=== PATIENT | female | born 1995 | race Caucasian/White ===

== ENCOUNTER 2017-03-30 09:15 | Emergency (ER) | payer OTHER ==
[~2017-03-30] VITALS: Ht 167.6 cm; Wt 83.8 kg
[~2017-03-30 09:15] MED LIST: CLARITIN10 M3 PO; FLEXERIL5 MG PO; NEURONTIN300 MG PO; PROAIR HFA8.5 GM IH; PROZAC10 MG PO; TYLENOL EXTRA500 MG PO; ZOFRAN4 MG PO
[2017-03-30 11:20] VITALS: BP 124/90
== END 2017-03-30 11:21 | disposition home or self-care (01) ==
LOC: EME 09:15
DX: M54.41 Lumbago with sciatica, right side (principal); Z88.6 Allergy status to analgesic agent
CPT/HCPCS: 99281; 99285; J2270

== ENCOUNTER 2017-04-18 00:07 | Emergency (ER) | payer OTHER ==
[~2017-04-18] VITALS: Ht 167.6 cm; Wt 82.1 kg
[2017-04-18 01:19] LABS: HEMATOCRIT 39.3 % (36.0-46.0); MCH 28.9 PG (29.0-34.0); MCHC 32.8 G/DL (30.0-36.0); MCV 88.1 FL (83-99); MEAN PLAT.VOLUME 10.4 uM^3 (9.5-12.4); PLATELET COUNT 293 K/uL (156-360); RBC DIS.WIDTH-CV 13.5 % (11.8-14.6); RBC DIS.WIDTH-SD 43.6 % (39-53); RED BLOOD COUNT 4.46 M/uL (3.80-5.20); WHITE BLOOD COUNT 8.4 K/uL (4.1-10.2)
[2017-04-18] MEDS ORDERED: PERCOCET 5/31 TABLET PO (04:34)
[2017-04-18 04:50] VITALS: BP 122/92
== END 2017-04-18 04:51 | disposition home or self-care (01) ==
LOC: EME 00:07
DX: O03.9 Complete or unspecified spontaneous abortion without complication (principal); G89.29 Other chronic pain; J45.909 Unspecified asthma, uncomplicated
CPT/HCPCS: 81003; 84702; 85027; 86900; 86901; 99281; 99284

== ENCOUNTER 2018-03-30 19:13 | Outpatient (CLI) | payer OTHER ==
[~2018-03-30] VITALS: Ht 167.6 cm; Wt 84.1 kg
[~2018-03-30 19:13] MED LIST changes: +PERCOCET 5/31 TABLET PO
[2018-03-30 19:21] VITALS: BP 118/78
[2018-03-30] MEDS ORDERED: ZYRTEC10 M3 PO (19:40)
[2018-03-30] MEDS ORDERED: PRENATAL GUMMI1 EACH PO (19:41)
[2018-03-30] MEDS ORDERED: IRON325 M1 PO (19:41)
[2018-03-30 20:16] LABS: BASOPHIL (%) 0.2 % (0-1); EOSINOPHIL (%) 1.2 % (0-5); EOSINOPHIL COUNT 0.1 K/uL (0-0.3); HEMATOCRIT 28.5 % (36.0-46.0); HEMOGLOBIN 9.6 G/DL (11.9-15.5); IMMATURE GRANULOCYTE (%) 1.1 % (0.0-0.7); LYMPHOCYTE (%) 20.3 % (15-42); LYMPHOCYTE COUNT 2.2 K/uL (1.0-2.8); MCH 28.4 PG (29.0-34.0); MCHC 33.7 G/DL (30.0-36.0); MCV 84.3 FL (83-99); MONOCYTE (%) 5.1 % (3-12); MONOCYTE COUNT 0.6 K/uL (0-0.8); NEUTROPHIL (%) 72.1 % (45-76); NEUTROPHIL COUNT 7.9 K/uL (1.8-6.4); PLATELET COUNT 195 K/uL (156-360); RBC DIS.WIDTH-CV 14.7 % (11.8-14.6); RBC DIS.WIDTH-SD 45.3 % (39-53); RED BLOOD COUNT 3.38 M/uL (3.80-5.20)
[2018-03-30 20:17] LABS: APPEARANCE CLOUDY ((CLEAR)); BILIRUBIN NEGATIVE; BLOOD NEGATIVE; COLOR YELLOW ((YELLOW)); GLUCOSE (STRIP) NEGATIVE; KETONES 20; LEUKOCYTES MODERATE; NITRITE NEGATIVE; PROTEIN (STRIP) 30; SPECIFIC GRAVITY 1.015 (1.000-1.030); UROBILINOGEN 0.2 MG/DL (0.2-1.0)
[2018-03-30 21:19] LABS: BACTERIA 1+ /HPF; EPITHELIAL CELLS 2+ /HPF; MUCUS NONE SEEN /LPF; RED BLOOD CELLS 0-5 /HPF (0-5); UCUL ADDED? YES
[2018-03-31 00:25] VITALS: BP 137/70
[2018-03-31 03:12] VITALS: BP 118/75
== END 2018-03-31 06:22 | disposition home or self-care (01) ==
LOC: LDRP-OP 19:13 → 2WEST 19:14 → LDRP-OP 06-25 10:46
PROVIDERS: Nurse Practitioner
DX: O26.893 Other specified pregnancy related conditions, third trimester (principal); R10.32 Left lower quadrant pain; Z3A.31 31 weeks gestation of pregnancy; Z87.891 Personal history of nicotine dependence
CPT/HCPCS: 59025; 81003; 85025; 87086; G0378; J0696; J7120

== ENCOUNTER 2018-04-21 15:31 | Outpatient (CLI) | payer OTHER ==
[~2018-04-21 15:31] MED LIST changes: +IRON325 M1 PO; +PRENATAL GUMMI1 EACH PO; +ZYRTEC10 M3 PO
[2018-04-21 15:46] VITALS: BP 130/85
[2018-04-21 16:13] VITALS: BP 128/88
[2018-04-21 16:27] LABS: BASOPHIL (%) 0.2 % (0-1); EOSINOPHIL (%) 1.9 % (0-5); EOSINOPHIL COUNT 0.2 K/uL (0-0.3); HEMATOCRIT 30.2 % (36.0-46.0); HEMOGLOBIN 9.8 G/DL (11.9-15.5); IMMATURE GRANULOCYTE (%) 1.7 % (0.0-0.7); LYMPHOCYTE (%) 27.7 % (15-42); LYMPHOCYTE COUNT 2.5 K/uL (1.0-2.8); MCH 27.8 PG (29.0-34.0); MCHC 32.5 G/DL (30.0-36.0); MCV 85.6 FL (83-99); MONOCYTE (%) 8.8 % (3-12); MONOCYTE COUNT 0.8 K/uL (0-0.8); NEUTROPHIL (%) 59.7 % (45-76); NEUTROPHIL COUNT 5.5 K/uL (1.8-6.4); PLATELET COUNT 197 K/uL (156-360); RBC DIS.WIDTH-CV 15.3 % (11.8-14.6); RBC DIS.WIDTH-SD 48.2 % (39-53); RED BLOOD COUNT 3.53 M/uL (3.80-5.20); WHITE BLOOD COUNT 9.2 K/uL (4.1-10.2)
[2018-04-21 16:43] VITALS: BP 125/66
[2018-04-21 16:43] LABS: ALBUMIN 3.1 g/dL (3.2-4.8); CHLORIDE 109 mEq/L (99-109); POTASSIUM 3.8 mEq/L (3.7-5.4); SODIUM 137 mEq/L (136-147)
[2018-04-21 16:45] LABS: GLUCOSE 90 mg/dL (70-99); TOTAL PROTEIN 6.2 g/dL (6.4-8.3)
[2018-04-21 16:47] LABS: TOTAL BILIRUBIN 0.3 mg/dL (0.0-1.0)
[2018-04-21 16:49] LABS: ALKALINE PHOSPHATASE 139 IU/L (3-129); CREATININE 0.6 mg/dL (0.6-1.3); GFR ESTIMATE (CALCULATED) > 59 mL/min/
[2018-04-21 16:50] LABS: UREA NITROGEN (BUN) 7 mg/dL (9-23)
[2018-04-21 16:51] LABS: AST (GOT) 21 IU/L (2-34)
[2018-04-21 16:52] LABS: ALT (GPT) 11 IU/L (3-49)
[2018-04-21] MEDS ORDERED: SERTRALINE HCL50 MG PD (16:55)
[2018-04-21 17:13] VITALS: BP 130/81
[2018-04-21 17:33] LABS: UR CREATININE CONCENTRATION 88.8 MG/DL
[2018-04-21 17:43] VITALS: BP 110/55
== END 2018-04-21 17:55 | disposition home or self-care (01) ==
LOC: LDRP-OP 15:31 → 2WEST 15:32 → LDRP-OP 06-25 06:30
PROVIDERS: Midwife
DX: O26.893 Other specified pregnancy related conditions, third trimester (principal); R03.0 Elevated blood-pressure reading, without diagnosis of hypertension; R51 Headache; O36.8130 Decreased fetal movements, third trimester, not applicable or unspecified; O99.343 Other mental disorders complicating pregnancy, third trimester; F32.9 Major depressive disorder, single episode, unspecified; F41.9 Anxiety disorder, unspecified; O99.353 Diseases of the nervous system complicating pregnancy, third trimester; G89.29 Other chronic pain; M54.9 Dorsalgia, unspecified; O99.013 Anemia complicating pregnancy, third trimester; Z82.49 Family history of ischemic heart disease and other diseases of the circulatory system; Z3A.35 35 weeks gestation of pregnancy
CPT/HCPCS: 59025; 80053; 82570; 84156; 85025; G0378